=== PATIENT | male | born 1950 | race Two or more races ===

== ENCOUNTER 2024-08-03 10:15 | Inpatient (IN) | payer OTHER ==
[~2024-08-03] VITALS: Ht 167.6 cm; Wt 83.5 kg
[2024-08-03] MEDS ORDERED: TRIJARDY XR 5-1 EACH PO (15:21)
[2024-08-03] MEDS ORDERED: COZAAR50 MG PO (15:22)
[2024-08-03] MEDS ORDERED: AMLODIPINE-OLM1 EACH PO (15:22)
[2024-08-03] MEDS ORDERED: HORIZANT300 MG PO (15:23)
[2024-08-03] MEDS ORDERED: SERTRALINE20 MG/1 ML PO (15:23)
[2024-08-03] MEDS ORDERED: CLONIDINE HCL0.1 MG PO (15:23)
[2024-08-03] MEDS ORDERED: PROSCAR5 MG PO (15:23)
[2024-08-03] MEDS ORDERED: TAMS0.4C PO (15:24)
[2024-08-03] MEDS ORDERED: ATORVASTATIN CA10 MG PO (15:24)
[2024-08-03] MEDS ORDERED: HYDRODIURIL12.5 MG PO (15:24)
[2024-08-03 16:44] LABS: INR 1.02; PROTHROMBIN TIME 11.1 SECONDS (9.0-11.5)
[2024-08-07] MEDS ORDERED: METRONIDAZOLE/SODIUM CHLORIDE 500 MG/100 ML PIGGYBACK IV ONE (11:36)
[2024-08-07] MEDS ORDERED: CEFTRIAXONE SODIUM 2,000 MG VIAL ONE (11:36)
[2024-08-07] MEDS ORDERED: CHLORHEXIDINE GLUCONATE 120 ML BOTTLE TOP ONE ×2 (11:38→16:18)
[2024-08-07] MEDS ORDERED: BUPIVACAINE HCL/MPF 0.5% 30ML VIAL ONE (11:38)
[2024-08-07] MEDS ORDERED: DEXTROSE 50 % IN WATER 0.5 G/ML DISP.SYRIN IV PRN ×2 (13:00→17:00)
[2024-08-07] MEDS ORDERED: 0.9 % SODIUM CHLORIDE 1,000 ML IV SCH (13:00)
[2024-08-07] MEDS ORDERED: HYOSCYAMINE SULFATE 0.125 MG TAB.SUBL SL SCH (13:00)
[2024-08-07] MEDS ORDERED: ONDANSETRON HCL 2 MG/ML VIAL IV PRN (13:00)
[2024-08-07] MEDS ORDERED: MORPHINE SULFATE 4 MG/ML CARTRIDGE IV PRN (13:00)
[2024-08-07] MEDS ORDERED: OxyCODONE HCL 5 MG TABLET (ROXICODONE) PO PRN (13:00)
[2024-08-07] MEDS ORDERED: ACETAMINOPHEN 500 MG GEL..CAP PO SCH (14:00)
[2024-08-07] MEDS ORDERED: INSULIN LISPRO 1,000 UNIT/10 ML UNITS SUBCUTANEO PRN (17:00)
[2024-08-07] MEDS ORDERED: POLYETHYLENE GLYCOL 3350 17 GM BLIST.PACK PO SCH (17:00)
[2024-08-07] MEDS ORDERED: ENALAPRILAT DIHYDRATE 1.25 MG/ML VIAL IV PRN (17:00)
[2024-08-07] MEDS ORDERED: GABAPENTIN 300 MG CAPSULE PO SCH (17:00)
[2024-08-07] MEDS ORDERED: METRONIDAZOLE/SODIUM CHLORIDE 500 MG/100 ML PIGGYBACK IV SCH (17:00)
[2024-08-07] MEDS ORDERED: FAMOTIDINE/PF 20 MG/2 ML VIAL IV PUSH SCH (21:00)
[2024-08-07] MEDS ORDERED: SERTRALINE HCL 50 MG TABLET PO SCH (21:00)
[2024-08-07] MEDS ORDERED: TAMSULOSIN HCL 0.4 MG CAP PO SCH (21:00)
[2024-08-07] MEDS ORDERED: CLONIDINE HCL 0.1 MG TABLET PO SCH (21:00)
[2024-08-07] MEDS ORDERED: FAMOTIDINE/PF 20 MG/2 ML VIAL ONE (21:26)
[2024-08-07 22:04] LABS: HEMATOCRIT 35.2 % (39.0-48.0); HEMOGLOBIN 11.8 g/dL (13-16.00); MEAN CELL VOLUME 89.2 fL (80.0-100.00); MEAN CORPUSCULAR HGB CONC 33.6 g/dl (32.0-36.0); PLATELET COUNT 211 K/uL (150-450); RED BLOOD COUNT 3.95 M/uL (4.00-6.00); RED CELL DISTRIBUTION WIDTH 15.1 % (11.5-14.5)
[2024-08-07 22:16] LABS: ALBUMIN 3.2 gm/dL (3.4-5.0); CALCIUM 8.9 mg/dL (8.5-10.1); CREATININE SERUM 1.23 mg/dL (0.70-1.30); GFR 57.21; MAGNESIUM 1.5 mg/dL (1.8-2.4); PHOSPHOROUS 4.8 mg/dL (2.5-4.9); POTASSIUM 4.04 mEq/L (3.5-5.1)
[2024-08-07 22:20] VITALS: BP 97/50; O2SAT 90
[2024-08-08] VITALS (8 sets, daily range): BP systolic 112–186; BP diastolic 66–93; O2SAT 90–100
[2024-08-08 07:12] LABS: ALBUMIN 3.3 gm/dL (3.4-5.0); CALCIUM 8.3 mg/dL (8.5-10.1); CREATININE SERUM 1.27 mg/dL (0.70-1.30); GFR 55.14; MAGNESIUM 1.5 mg/dL (1.8-2.4); PHOSPHOROUS 3.4 mg/dL (2.5-4.9); POTASSIUM 3.68 mEq/L (3.5-5.1)
[2024-08-08 07:18] LABS: HEMATOCRIT 34.5 % (39.0-48.0); HEMOGLOBIN 11.4 g/dL (13-16.00); MEAN CELL VOLUME 89.6 fL (80.0-100.00); MEAN CORPUSCULAR HEMOGLOBIN 29.6 pg (27.00-32.0); PLATELET COUNT 201 K/uL (150-450); RED BLOOD COUNT 3.86 M/uL (4.00-6.00); RED CELL DISTRIBUTION WIDTH 15.3 % (11.5-14.5)
[2024-08-08] MEDS ORDERED: FINASTERIDE 5 MG TABLET PO SCH (09:00)
[2024-08-08] MEDS ORDERED: HYDROCHLOROTHIAZIDE 25 MG TABLET PO SCH (09:00)
[2024-08-08] MEDS ORDERED: AMLODIPINE BESYLATE 5 MG TABLET PO SCH (09:00)
[2024-08-08] MEDS ORDERED: MEMANTINE HCL 10 MG TABLET PO SCH (09:00)
[2024-08-08] MEDS ORDERED: LOSARTAN POTASSIUM 100 MG TABLET PO SCH (09:00)
[2024-08-08] MEDS ORDERED: MAGNESIUM SULFATE IN WATER 50 ML IV NR (11:12)
[2024-08-08] MEDS ORDERED: INSULIN NPH HUMAN ISOPHANE 1,000 UNITS/10 ML UNITS SUBCUTANEO SCH (11:15)
[2024-08-08] MEDS ORDERED: SOD FERRIC GLUC COMPLX/SUCROSE 62.5 MG in 0.9 % SODIUM CHLORIDE 50 ML IV SCH (12:00)
[2024-08-08] MEDS ORDERED: Cyanocobalamin/Mecobalamin 1 TAB.SL SL SCH (12:00)
[2024-08-08 12:28] LABS: HEMATOCRIT 33.1 % (39.0-48.0); HEMOGLOBIN 10.7 g/dL (13-16.00); MEAN CELL VOLUME 89.7 fL (80.0-100.00); MEAN CORPUSCULAR HEMOGLOBIN 29.1 pg (27.00-32.0); MEAN CORPUSCULAR HGB CONC 32.5 g/dl (32.0-36.0); PLATELET COUNT 207 K/uL (150-450); RED BLOOD COUNT 3.69 M/uL (4.00-6.00); RED CELL DISTRIBUTION WIDTH 15.3 % (11.5-14.5)
[2024-08-08] MEDS ORDERED: AMINOCAPROIC ACID 250 MG/ML VIAL IV STA (13:25)
[2024-08-08] MEDS ORDERED: TAMSULOSIN HCL 0.4 MG CAP PO STA (14:07)
[2024-08-08] MEDS ORDERED: ATORVASTATIN CALCIUM 40 MG TABLET PO SCH (17:00)
[2024-08-08] MEDS ORDERED: ENOXAPARIN SODIUM 40 MG/0.4 ML SYRINGE SUBCUTANEO SCH (17:00)
[2024-08-08] MEDS ORDERED: AMINOCAPROIC ACID 20 MG/ML ML IV SCH (18:00)
[2024-08-09] VITALS (9 sets, daily range): BP systolic 153–170; BP diastolic 73–81; O2SAT 88–97
[2024-08-09 06:50] LABS: HEMATOCRIT 29.3 % (39.0-48.0); HEMOGLOBIN 10.2 g/dL (13-16.00); MEAN CELL VOLUME 87.2 fL (80.0-100.00); MEAN CORPUSCULAR HEMOGLOBIN 30.5 pg (27.00-32.0); PLATELET COUNT 172 K/uL (150-450); RED BLOOD COUNT 3.36 M/uL (4.00-6.00); RED CELL DISTRIBUTION WIDTH 15.5 % (11.5-14.5)
[2024-08-09 08:20] LABS: ALBUMIN 3.1 gm/dL (3.4-5.0); CALCIUM 8.3 mg/dL (8.5-10.1); CREATININE SERUM 0.88 mg/dL (0.70-1.30); GFR 84.2; MAGNESIUM 2.2 mg/dL (1.8-2.4); POTASSIUM 3.72 mEq/L (3.5-5.1)
[2024-08-09 08:48] LABS: PHOSPHOROUS 1.6 mg/dL (2.5-4.9)
[2024-08-09] MEDS ORDERED: TAMSULOSIN HCL 0.4 MG CAP PO SCH (09:00)
[2024-08-09] MEDS ORDERED: ENOXAPARIN SODIUM 40 MG/0.4 ML SYRINGE SUBCUTANEO SCH (09:00)
[2024-08-09] MEDS ORDERED: SODIUM CHLORIDE 0.45 % 1,000 ML IV SCH (11:45)
[2024-08-09] MEDS ORDERED: POTASSIUM PHOS,M-BASIC-D-BASIC 15 MM in 0.9 % SODIUM CHLORIDE 250 ML IV ONE (12:00)
[2024-08-10] VITALS (9 sets, daily range): BP systolic 148–190; BP diastolic 68–84; O2SAT 90–98
[2024-08-10 08:21] LABS: HEMATOCRIT 31.4 % (39.0-48.0); HEMOGLOBIN 10.9 g/dL (13-16.00); MEAN CELL VOLUME 87.6 fL (80.0-100.00); MEAN CORPUSCULAR HEMOGLOBIN 30.3 pg (27.00-32.0); MEAN CORPUSCULAR HGB CONC 34.6 g/dl (32.0-36.0); PLATELET COUNT 190 K/uL (150-450); RED BLOOD COUNT 3.59 M/uL (4.00-6.00); RED CELL DISTRIBUTION WIDTH 14.8 % (11.5-14.5)
[2024-08-11] VITALS: BP 178/91; O2SAT 98
[2024-08-11 04:30] VITALS: O2SAT 99
[2024-08-11 08:00] VITALS: BP 170/90; O2SAT 98
[2024-08-11] MEDS ORDERED: TAMS0.4C PO (08:16)
[2024-08-11] MEDS ORDERED: PEPCID AC20 MG PO (08:16)
[2024-08-11] MEDS ORDERED: TRAM1TAB98 PO (08:16)
[2024-08-11] MEDS ORDERED: HYOSCYAMINE0.125 M1 SL (08:16)
[2024-08-11 08:24] LABS: HEMATOCRIT 31.1 % (39.0-48.0); HEMOGLOBIN 10.9 g/dL (13-16.00); MEAN CELL VOLUME 86.4 fL (80.0-100.00); MEAN CORPUSCULAR HEMOGLOBIN 30.4 pg (27.00-32.0); MEAN CORPUSCULAR HGB CONC 35.1 g/dl (32.0-36.0); PLATELET COUNT 217 K/uL (150-450)
[2024-08-11 09:36] LABS: CREATININE SERUM 0.65 mg/dL (0.70-1.30); GFR 119.43; MAGNESIUM 1.7 mg/dL (1.8-2.4); PHOSPHOROUS 2.1 mg/dL (2.5-4.9); POTASSIUM 3.19 mEq/L (3.5-5.1)
== END 2024-08-11 10:00 | disposition home or self-care (01) | DRG 330 ==
LOC: SURH 08-07 08:30 → O/R 08-07 09:32 → SURH 08-07 10:15 → SURG 08-07 19:07
PROVIDERS: Internal Medicine Geriatric Medicine; ADMIT Surgery; ATTEND Surgery
PROC: 0DTP4ZZ Resection of Rectum, Percutaneous Endoscopic Approach (ICD-10-PCS; 2024-08-07)
PROC: 0DTN4ZZ Resection of Sigmoid Colon, Percutaneous Endoscopic Approach (ICD-10-PCS; 2024-08-07)
PROC: 0DBQ4ZZ Excision of Anus, Percutaneous Endoscopic Approach (ICD-10-PCS; 2024-08-07)
PROC: 07BC4ZZ Excision of Pelvis Lymphatic, Percutaneous Endoscopic Approach (ICD-10-PCS; 2024-08-07)
PROC: 0D1E4Z4 Bypass Large Intestine to Cutaneous, Percutaneous Endoscopic Approach (ICD-10-PCS; principal; 2024-08-07 08:30)
PROC: 4A12X4Z Monitoring of Cardiac Electrical Activity, External Approach (ICD-10-PCS; 2024-08-08)
DX: C20 Malignant neoplasm of rectum (principal); E87.0 Hyperosmolality and hypernatremia; K92.1 Melena; I25.810 Atherosclerosis of coronary artery bypass graft(s) without angina pectoris; D12.8 Benign neoplasm of rectum; R59.0 Localized enlarged lymph nodes; K66.0 Peritoneal adhesions (postprocedural) (postinfection); N40.1 Benign prostatic hyperplasia with lower urinary tract symptoms; C61 Malignant neoplasm of prostate; R33.8 Other retention of urine; D64.89 Other specified anemias; E83.39 Other disorders of phosphorus metabolism; E11.9 Type 2 diabetes mellitus without complications; I11.9 Hypertensive heart disease without heart failure; Z79.84 Long term (current) use of oral hypoglycemic drugs; Z95.1 Presence of aortocoronary bypass graft; Z43.3 Encounter for attention to colostomy

== ENCOUNTER 2024-08-15 07:19 | Emergency (ER) | payer OTHER ==
[~2024-08-15] VITALS: Ht 172.7 cm; Wt 84.8 kg
[~2024-08-15 07:19] MED LIST: AMLODIPINE-OLM1 EACH PO; ATORVASTATIN CA10 MG PO; CLONIDINE HCL0.1 MG PO; COZAAR50 MG PO; HORIZANT300 MG PO; HYDRODIURIL12.5 MG PO; HYOSCYAMINE0.125 M1 SL; PEPCID AC20 MG PO; PROSCAR5 MG PO; SERTRALINE20 MG/1 ML PO; TAMS0.4C PO; TRAM1TAB98 PO; TRIJARDY XR 5-1 EACH PO
[2024-08-15] MEDS ORDERED: [UNRECOGNIZED DRUG - OTHER] (08:04)
[2024-08-15] MEDS ORDERED: TOUJEO SOL300 UNIT/1 SQ (08:05)
[2024-08-15 09:20] LABS: HEMATOCRIT 32.5 % (39.0-48.0); HEMOGLOBIN 11.1 g/dL (13-16.00); MEAN CELL VOLUME 87.8 fL (80.0-100.00); MEAN CORPUSCULAR HGB CONC 34.2 g/dl (32.0-36.0); PLATELET COUNT 253 K/uL (150-450); RED CELL DISTRIBUTION WIDTH 15.6 % (11.5-14.5)
== END 2024-08-15 11:06 | disposition home or self-care (01) ==
LOC: ER 07:19
PROVIDERS: Emergency Medicine
DX: I97.621 Postprocedural hematoma of a circulatory system organ or structure following other procedure (principal); Z85.038 Personal history of other malignant neoplasm of large intestine; Z91.041 Radiographic dye allergy status; I10 Essential (primary) hypertension; E78.00 Pure hypercholesterolemia, unspecified; Z93.3 Colostomy status; E11.9 Type 2 diabetes mellitus without complications; Z79.4 Long term (current) use of insulin

== ENCOUNTER 2024-09-02 16:22 | Inpatient (IN) | payer OTHER ==
[~2024-09-02] VITALS: Ht 170.2 cm; Wt 83.5 kg
[~2024-09-02 16:22] MED LIST changes: +TOUJEO SOL300 UNIT/1 SQ; +[UNRECOGNIZED DRUG - OTHER]
[2024-09-02] MEDS ORDERED: 0.9 % SODIUM CHLORIDE 1,000 ML IV ONE (16:45)
[2024-09-02] MEDS ORDERED: PIPERACILLIN/TAZOBACTAM SODIUM 3.375 GM VIAL IV SCH (16:49)
[2024-09-02] MEDS ORDERED: PANTOPRAZOLE SODIUM 40 MG/VIAL VIAL IV PUSH ONE (17:00)
[2024-09-02 17:23] LABS: URINE APPEARANCE Clear; URINE BILIRRUBIN Negative (NEGATIVE); URINE BLOOD Negative; URINE COLOR Yellow; URINE LEUKOCYTE Negative; URINE NITRATE Negative; URINE PROTEIN Negative (NEGATIVE); URINE UROBILINOGEN 0.2 E.U./dl
[2024-09-02 17:27] LABS: URINE BACTERIA 62.9 uL (0.0-1933); URINE EPITHELIAL CELLS 8.3 uL (0.0-38.8); URINE RBC 2.7 uL (0.0-20.8); URINE WBC 3.8 uL (0.0-23.2)
[2024-09-02 17:34] LABS: HEMATOCRIT 37.6 % (39.0-48.0); HEMOGLOBIN 12.2 g/dL (13-16.00); MEAN CELL VOLUME 89.3 fL (80.0-100.00); MEAN CORPUSCULAR HEMOGLOBIN 28.9 pg (27.00-32.0); MEAN CORPUSCULAR HGB CONC 32.4 g/dl (32.0-36.0); PLATELET COUNT 357 K/uL (150-450); RED BLOOD COUNT 4.22 M/uL (4.00-6.00)
[2024-09-02 17:43] LABS: URINE GLUCOSE >=1000 MG/DL (NEGATIVE); URINE KETONE 40 (NEGATIVE)
[2024-09-02 17:45] LABS: INR 1.09; PARTIAL THROMBOPLASTIN TIME 26.6 SECONDS (22.0-34.0); PROTHROMBIN TIME 11.8 SECONDS (9.0-11.5)
[2024-09-02 17:50] LABS: BILIRUBIN TOTAL 0.5 mg/dL (0.3-1.2); CALCIUM 9.7 mg/dL (8.5-10.1); CREATININE SERUM 0.99 mg/dL (0.70-1.30); GFR 73.5; GLOBULINA 4.6 G/DL (2.4-3.5); POTASSIUM 4.71 mEq/L (3.5-5.1); TOTAL PROTEIN 7.6 gm/dL (6.4-8.2)
[2024-09-02] MEDS ORDERED: FAMOTIDINE/PF 20 MG/2 ML VIAL IV SCH (17:57)
[2024-09-02] MEDS ORDERED: MORPHINE SULFATE 4 MG/ML VIAL IV PRN (18:00)
[2024-09-02] MEDS ORDERED: RINGERS SOLUTION,LACTATED 1,000 ML IV SCH (18:00)
[2024-09-02] MEDS ORDERED: LACTOBACILLUS ACIDOPHILUS 1 CAP CAP PO SCH (18:00)
[2024-09-02] MEDS ORDERED: DEXTROSE 50 % IN WATER 0.5 G/ML DISP.SYRIN IV PRN (18:00)
[2024-09-02 18:08] VITALS: BP 145/82
[2024-09-02] MEDS ORDERED: ACETAMINOPHEN 500 MG GEL..CAP PO SCH (20:00)
[2024-09-02 21:00] VITALS: BP 149/80; O2SAT 95
[2024-09-02] MEDS ORDERED: INSULIN GLARGINE,HUM.REC.ANLOG 1,000 UNITS/10 ML UNITS SUBCUTANEO SCH (21:00)
[2024-09-03 00:42] VITALS: BP 155/80; BP 165/80; O2SAT 98
[2024-09-03] MEDS ORDERED: ONDANSETRON HCL 4 MG in DEXTROSE 5 % IN WATER 50 ML IV SCH (01:00)
[2024-09-03] MEDS ORDERED: DIATRIZOATE MEGLUMINE, SODIUM 30 ML BOTTLE PO ONE (06:00)
[2024-09-03] MEDS ORDERED: METHYLPREDNISOLONE SOD SUCC 40 MG VIAL IV PRN (07:15)
[2024-09-03] MEDS ORDERED: DIPHENHYDRAMINE HCL 50 MG/ML VIAL 1ML IV SCH (07:15)
[2024-09-03 07:42] LABS: CALCIUM 9.5 mg/dL (8.5-10.1); CREATININE SERUM 0.87 mg/dL (0.70-1.30); GFR 85.32; MAGNESIUM 2.2 mg/dL (1.8-2.4); PHOSPHOROUS 3.3 mg/dL (2.5-4.9); POTASSIUM 4.63 mEq/L (3.5-5.1)
[2024-09-03 07:55] LABS: HEMATOCRIT 36.8 % (39.0-48.0); HEMOGLOBIN 12.3 g/dL (13-16.00); MEAN CELL VOLUME 88.8 fL (80.0-100.00); MEAN CORPUSCULAR HEMOGLOBIN 29.7 pg (27.00-32.0); MEAN CORPUSCULAR HGB CONC 33.4 g/dl (32.0-36.0); PLATELET COUNT 399 K/uL (150-450); RED BLOOD COUNT 4.14 M/uL (4.00-6.00); RED CELL DISTRIBUTION WIDTH 16.2 % (11.5-14.5)
[2024-09-03 08:06] VITALS: BP 154/68; O2SAT 97
[2024-09-03] MEDS ORDERED: INSULIN LISPRO 1,000 UNIT/10 ML UNITS SUBCUTANEO SCH (09:00)
[2024-09-03] MEDS ORDERED: LOSARTAN POTASSIUM 100 MG TABLET PO SCH (09:00)
[2024-09-03] MEDS ORDERED: HYDROCHLOROTHIAZIDE 25 MG TABLET PO SCH (09:00)
[2024-09-03] MEDS ORDERED: CLONIDINE HCL 0.1 MG TABLET PO SCH (09:00)
[2024-09-03] MEDS ORDERED: MEMANTINE HCL 10 MG TABLET PO SCH (09:00)
[2024-09-03] MEDS ORDERED: FINASTERIDE 5 MG TABLET PO SCH (09:00)
[2024-09-03] MEDS ORDERED: ENOXAPARIN SODIUM 40 MG/0.4 ML SYRINGE SUBCUTANEO SCH (09:00)
[2024-09-03 15:48] VITALS: BP 138/77; O2SAT 96
[2024-09-04 00:11] VITALS: BP 158/80; O2SAT 96
[2024-09-04 06:34] LABS: HEMATOCRIT 36.9 % (39.0-48.0); HEMOGLOBIN 12.1 g/dL (13-16.00); MEAN CELL VOLUME 89.1 fL (80.0-100.00); MEAN CORPUSCULAR HEMOGLOBIN 29.3 pg (27.00-32.0); MEAN CORPUSCULAR HGB CONC 32.9 g/dl (32.0-36.0); PLATELET COUNT 406 K/uL (150-450); RED BLOOD COUNT 4.14 M/uL (4.00-6.00); RED CELL DISTRIBUTION WIDTH 16.1 % (11.5-14.5)
[2024-09-04 06:47] LABS: ERYTHROCYTE SEDIMENTATION RATE 69 mm/hr
[2024-09-04 06:54] LABS: ALBUMIN 2.9 gm/dL (3.4-5.0); BILIRUBIN TOTAL 0.45 mg/dL (0.3-1.2); CALCIUM 9.8 mg/dL (8.5-10.1); CREATININE SERUM 0.87 mg/dL (0.70-1.30); GFR 85.32; GLOBULINA 3.3 G/DL (2.4-3.5); POTASSIUM 4.9 mEq/L (3.5-5.1); TOTAL PROTEIN 6.2 gm/dL (6.4-8.2)
[2024-09-04 07:07] LABS: C-REACTIVE PROTEIN 4.99 MG/DL (0.00-0.29)
[2024-09-04 08:00] VITALS: BP 172/89; O2SAT 96
[2024-09-04] MEDS ORDERED: CEFTRIAXONE SODIUM 2,000 MG VIAL IV SCH (13:33)
[2024-09-04] MEDS ORDERED: MIDAZOLAM HCL 2 MG/2 ML VIAL IV PUSH ONE (16:30)
[2024-09-04] MEDS ORDERED: fentaNYL CITRATE 50 MCG/ML AMPUL IV PUSH ONE (16:30)
[2024-09-04 16:49] VITALS: BP 160/82; O2SAT 95
[2024-09-04] MEDS ORDERED: METRONIDAZOLE/SODIUM CHLORIDE 100 ML IV SCH (17:00)
[2024-09-04] MEDS ORDERED: INSULIN LISPRO 1,000 UNIT/10 ML UNITS SUBCUTANEO PRN (18:00)
[2024-09-04] MEDS ORDERED: ENALAPRILAT DIHYDRATE 1.25 MG/ML VIAL IV PRN (18:00)
[2024-09-04] MEDS ORDERED: DEXTROSE 50 % IN WATER 0.5 G/ML DISP.SYRIN IV PRN (18:00)
[2024-09-04] MEDS ORDERED: SERTRALINE HCL 50 MG TABLET PO SCH (21:00)
[2024-09-04] MEDS ORDERED: TAMSULOSIN HCL 0.4 MG CAP PO SCH (21:00)
[2024-09-04] MEDS ORDERED: CLONIDINE HCL 0.1 MG TABLET PO SCH (21:00)
[2024-09-04] MEDS ORDERED: GABAPENTIN 300 MG CAPSULE PO SCH (21:00)
[2024-09-05 00:27] VITALS: BP 136/68; O2SAT 98
[2024-09-05 08:01] LABS: HEMATOCRIT 37.1 % (39.0-48.0); HEMOGLOBIN 12.1 g/dL (13-16.00); MEAN CELL VOLUME 88.8 fL (80.0-100.00); MEAN CORPUSCULAR HGB CONC 32.7 g/dl (32.0-36.0); PLATELET COUNT 355 K/uL (150-450); RED BLOOD COUNT 4.17 M/uL (4.00-6.00); RED CELL DISTRIBUTION WIDTH 15.9 % (11.5-14.5)
[2024-09-05 08:31] VITALS: BP 175/81; O2SAT 96
[2024-09-05 08:33] LABS: ALBUMIN 2.9 gm/dL (3.4-5.0); BILIRUBIN TOTAL 0.5 mg/dL (0.3-1.2); CALCIUM 8.9 mg/dL (8.5-10.1); CREATININE SERUM 0.61 mg/dL (0.70-1.30); GFR 128.52; GLOBULINA 3.3 G/DL (2.4-3.5); MAGNESIUM 1.7 mg/dL (1.8-2.4); PHOSPHOROUS 2.3 mg/dL (2.5-4.9); POTASSIUM 3.81 mEq/L (3.5-5.1); TOTAL PROTEIN 6.2 gm/dL (6.4-8.2)
[2024-09-05 08:37] LABS: C-REACTIVE PROTEIN 3.45 MG/DL (0.00-0.29)
[2024-09-05] MEDS ORDERED: AMLODIPINE BESYLATE 5 MG TABLET PO SCH (09:00)
[2024-09-05] MEDS ORDERED: SODIUM CHLORIDE 0.45 % 1,000 ML IV SCH (09:45)
[2024-09-05] MEDS ORDERED: MAGNESIUM SULFATE IN WATER 50 ML IV NR (12:00)
[2024-09-05] MEDS ORDERED: POTASSIUM PHOS,M-BASIC-D-BASIC 3 MM/ML VIAL IV NR (12:00)
[2024-09-05 16:35] VITALS: BP 102/67; O2SAT 95
[2024-09-05] MEDS ORDERED: VANCOMYCIN HCL 1,000 MG VIAL IV SCH (17:00)
[2024-09-05] MEDS ORDERED: MUPIROCIN 15 GM OINT..GM TUBE NASAL SCH (17:00)
[2024-09-05] MEDS ORDERED: ATORVASTATIN CALCIUM 40 MG TABLET PO SCH (17:00)
[2024-09-05] MEDS ORDERED: CHLORHEXIDINE GLUCONATE 120 ML BOTTLE TOP SCH (21:00)
[2024-09-06 01:00] VITALS: BP 119/79; O2SAT 96
[2024-09-06 08:00] VITALS: BP 151/61; O2SAT 96
[2024-09-06] MEDS ORDERED: INSULIN LISPRO 1,000 UNIT/10 ML UNITS SUBCUTANEO SCH (12:35)
[2024-09-06 16:41] VITALS: BP 112/62; O2SAT 98
[2024-09-06] MEDS ORDERED: INSULIN GLARGINE,HUM.REC.ANLOG 1,000 UNITS/10 ML UNITS SUBCUTANEO SCH (17:00)
[2024-09-06] MEDS ORDERED: FAMOtidine 20 MG TABLET PO SCH (21:00)
[2024-09-06 23:50] VITALS: BP 117/80; O2SAT 96
[2024-09-07 06:59] LABS: HEMATOCRIT 34.7 % (39.0-48.0); HEMOGLOBIN 11.7 g/dL (13-16.00); MEAN CORPUSCULAR HEMOGLOBIN 29.5 pg (27.00-32.0); MEAN CORPUSCULAR HGB CONC 33.9 g/dl (32.0-36.0); PLATELET COUNT 298 K/uL (150-450); RED BLOOD COUNT 3.98 M/uL (4.00-6.00); RED CELL DISTRIBUTION WIDTH 15.8 % (11.5-14.5)
[2024-09-07 07:05] LABS: CALCIUM 8.3 mg/dL (8.5-10.1); CREATININE SERUM 0.64 mg/dL (0.70-1.30); GFR 121.59; MAGNESIUM 1.6 mg/dL (1.8-2.4); PHOSPHOROUS 2.3 mg/dL (2.5-4.9); POTASSIUM 3.62 mEq/L (3.5-5.1)
[2024-09-07 08:24] VITALS: BP 121/60; O2SAT 95
[2024-09-07] MEDS ORDERED: MAGNESIUM SULFATE IN WATER 50 ML IV NR (10:30)
[2024-09-07] MEDS ORDERED: POTASSIUM PHOS,M-BASIC-D-BASIC 3 MM/ML VIAL IV ONE (12:00)
[2024-09-07 17:42] VITALS: BP 133/64; O2SAT 96
[2024-09-08 01:27] VITALS: BP 118/61; O2SAT 96
[2024-09-08] MEDS ORDERED: DIATRIZOATE MEGLUMINE, SODIUM 30 ML BOTTLE PO NR (06:00)
[2024-09-08 08:00] VITALS: BP 149/67; O2SAT 100
[2024-09-08 16:00] VITALS: BP 122/68; O2SAT 95
[2024-09-08] MEDS ORDERED: VANCOMYCIN HCL 5 MG/ML REDILUIDO IV SCH (17:00)
[2024-09-09] VITALS: BP 106/63; O2SAT 96
[2024-09-09 07:51] LABS: HEMATOCRIT 34.3 % (39.0-48.0); HEMOGLOBIN 11.6 g/dL (13-16.00); MEAN CELL VOLUME 86.5 fL (80.0-100.00); MEAN CORPUSCULAR HEMOGLOBIN 29.3 pg (27.00-32.0); MEAN CORPUSCULAR HGB CONC 33.8 g/dl (32.0-36.0); PLATELET COUNT 314 K/uL (150-450); RED BLOOD COUNT 3.97 M/uL (4.00-6.00); RED CELL DISTRIBUTION WIDTH 15.8 % (11.5-14.5)
[2024-09-09 07:58] LABS: ERYTHROCYTE SEDIMENTATION RATE 65 mm/hr
[2024-09-09] MEDS ORDERED: INSULIN LISPRO 1,000 UNIT/10 ML UNITS SUBCUTANEO SCH (08:00)
[2024-09-09 08:01] LABS: CALCIUM 8.5 mg/dL (8.5-10.1); CREATININE SERUM 0.74 mg/dL (0.70-1.30); GFR 102.83; MAGNESIUM 1.7 mg/dL (1.8-2.4); POTASSIUM 4.06 mEq/L (3.5-5.1)
[2024-09-09] MEDS ORDERED: INTEGRA F CAPS1 EACH PO (08:34)
[2024-09-09] MEDS ORDERED: TRAM1TAB98 PO (08:34)
[2024-09-09] MEDS ORDERED: PEPCID AC20 MG PO (08:35)
[2024-09-09] MEDS ORDERED: MONDOXYNE NL100 MG PO (08:35)
[2024-09-09 11:10] LABS: C-REACTIVE PROTEIN 1.41 MG/DL (0.00-0.29); PHOSPHOROUS 1.8 mg/dL (2.5-4.9)
[2024-09-09] MEDS ORDERED: INSULIN GLARGINE,HUM.REC.ANLOG 1,000 UNITS/10 ML UNITS SUBCUTANEO SCH (17:00)
== END 2024-09-09 11:03 | disposition home or self-care (01) | DRG 856 ==
LOC: ER 16:22 → SURG 18:16 → SURH 09-05 11:44
PROVIDERS: General Practice; Internal Medicine; Internal Medicine Geriatric Medicine; Internal Medicine Infectious Disease; Surgery; ADMIT Surgery; ATTEND Surgery
PROC: BW21YZZ Computerized Tomography (CT Scan) of Abdomen and Pelvis using Other Contrast (ICD-10-PCS; 2024-09-02)
PROC: 0W9H3ZX Drainage of Retroperitoneum, Percutaneous Approach, Diagnostic (ICD-10-PCS; principal; 2024-09-04)
PROC: BW21YZZ Computerized Tomography (CT Scan) of Abdomen and Pelvis using Other Contrast (ICD-10-PCS; 2024-09-08)
DX: T81.41XA Infection following a procedure, superficial incisional surgical site, initial encounter (principal); K68.19 Other retroperitoneal abscess; I25.810 Atherosclerosis of coronary artery bypass graft(s) without angina pectoris; R10.2 Pelvic and perineal pain; G30.0 Alzheimer's disease with early onset; F32.89 Other specified depressive episodes; Z91.048 Other nonmedicinal substance allergy status; A49.02 Methicillin resistant Staphylococcus aureus infection, unspecified site; E83.42 Hypomagnesemia; E83.39 Other disorders of phosphorus metabolism; I11.9 Hypertensive heart disease without heart failure; E11.9 Type 2 diabetes mellitus without complications; Z95.1 Presence of aortocoronary bypass graft; Z79.4 Long term (current) use of insulin